=== PATIENT | female | born 1985 | race American Indian/Alaskan Native ===

== ENCOUNTER 2016-11-29 22:31 | Outpatient (CLI) | payer MEDICAID ==
[2016-11-29 22:53] VITALS: BP 130/79
--- NOTE | 2016-11-30 10:33 | Ultrasound Report ---
OB LIMITED Technique: Transabdominal ultrasound with Doppler interrogation. Gestation: Single Position: Cephalic Amniotic Fluid: Normal RENEA = 11.5 cm Placenta: Fundal Placental Grade: 2 Heart Rate: 152 BPM
== END 2016-11-29 23:52 | disposition home or self-care (01) ==
LOC: TRG 22:31
PROVIDERS: ATTEND Obstetrics & Gynecology Gynecology
DX: O47.1 False labor at or after 37 completed weeks of gestation (principal); Z3A.37 37 weeks gestation of pregnancy
CPT/HCPCS: 76815

== ENCOUNTER 2016-12-09 08:50 | Inpatient (IN) | payer MEDICAID ==
[2016-12-09] MEDS: SUBLIMAZE IV PRN ×2 (08:50→11:20)
--- NOTE | 2016-12-09 09:32 | History and Physical Report ---
History of Present Illness Date of examination: 12/09/16 Date of admission: 12/09/16 08:52 Chief complaint: SROM History of present illness: 31-year-old 001 at 38+6 weeks presents in active labor, she is a [facility] patient. Patient complains of spontaneous rupture of membranes early this morning followed by contractions, care at [facility] unremarkable per patient. She is GBS positive and allergic to amoxicillin Past History Past Medical History: no pertinent history Past Surgical History: no surgical history [employer] History: herpes. denies: chlamydia, gonorrhea, hepatitis B, hepatitis C, HIV, syphilis Social history: single, smoking - Obstetrical History Expected Date of Delivery: 12/17/16 Actual Gestation: 38 Week(s) 6 Day(s) : 2 Para: 1 Medications and Allergies Allergies Allergy/AdvReac Type Severity Reaction Status Date / Time amoxicillin [Amoxicillin] Allergy Rash Verified 08/18/13 18:53 Home Medications Medication Instructions Recorded Confirmed Last Taken Type Promethazine [Phenergan] 25 mg PO Q6H PRN 08/18/13 08/18/13 Unknown History Review of Systems Constitutional: no fever, no chills, no sweats Cardiovascular: no syncope, no lightheadedness, no shortness of breath, no dyspnea on exertion, no paroxysmal nocturnal dyspnea, no high blood pressure Respiratory: no cough, no shortness of breath, no dyspnea on exertion Gastrointestinal: abdominal pain, no nausea, no vomiting Genitourinary: leakage of fluid, no vaginal bleeding, no vaginal discharge, no genital sores - Vital Signs Vital signs: Vital Signs Pulse BP Pulse Ox 102 H 119/76 98 12/09/16 09:21 12/09/16 09:21 12/09/16 09:21 Temp Pulse Resp BP Pulse Ox 97 H 119/76 99 12/09/16 09:27 12/09/16 09:21 12/09/16 09:27 - Physical Exam Abdomen: Positive: normal appearance, soft. Negative: distention, tenderness, guarding, rigidity Genitourinary (Female): Positive: normal external genitalia, other (Patient with low pain threshold to vaginal exams) Vulva: both: normal Uterus: Positive: enlarged (EFW ~ 3400) Adnexa: both: normal Extremities: Positive: normal - Obstetrical FHR: category 2 (minimal variability, no accels) Cervical Dilatation: 2.5 Cervical Effacement Percentage: 40 station: -3 Results All other labs normal. Assessment and Plan A: 31 y/o at 38+6 wks s/p SROM now in active labour -Cat 2 tracing P: -Admit -GBS prophylaxis with Vanc -Routine labs -Epidural prn -Start Oxygen and IV bolus -UDS -Anticipate - Patient Problems (1) 38 weeks gestation of Current Visit: Yes Status: Acute (2) Spontaneous rupture of amniotic membranes Current Visit: Yes Status: Acute (3) Active labor at term Current Visit: Yes Status: Acute
[2016-12-09 10:01] LABS: Hematocrit 36.1 % (30.3-42.9); Hemoglobin 11.9 gm/dl (10.1-14.3); Mean Corpuscular HGB Conc 33 % (30-34); Mean Corpuscular Hemoglobin 33 pg (28-32); Mean Corpuscular Volume 99 fl (79-97); Platelet Count 394 K/mm3 (140-440); Red Blood Count 3.66 M/mm3 (3.65-5.03); White Blood Count 13.1 K/mm3 (4.5-11.0)
[2016-12-09] MEDS ORDERED: BRETHINE SUB-Q PRN (11:00)
[2016-12-09] MEDS ORDERED: ePHEDrine SULFATE IV PRN (11:00)
[2016-12-09] MEDS ORDERED: LACTATED RINGERS 1,000 ML IV SCH (11:00)
[2016-12-09] MEDS ORDERED: XYLOCAINE 2% INFILTRATI ONE (11:00)
[2016-12-09] MEDS ORDERED: PITOCin/NS 20 UNIT/1000ML DRIP 20 UNITS/1,000 ML BAG IV SCH (11:00)
[2016-12-09] MEDS ORDERED: MINERAL OIL PO PRN (11:00)
[2016-12-09] MEDS ORDERED: PITOCin/NS 30 UNIT/500ML 30 UNITS/500 ML BAG IV SCH (11:00)
[2016-12-09] MEDS ORDERED: fentaNYL-BUPIV 2 MCG/ML-0.125% 200 MCG/100 ML BAG EPIDURAL ONE (11:05)
[2016-12-09] MEDS ORDERED: BRETHINE IVP PRN (11:30)
[2016-12-09] MEDS ORDERED: VANCOMYCIN/NS 1 GM/250 ML 1 GM/250 ML BAG IV SCH (11:30)
--- NOTE | 2016-12-09 11:51 | Anesthesia Consultation ---
Anesthesia Consult and Med Hx Date of service: 12/09/16 - Airway Anesthetic Teeth Evaluation: Good ROM Head & Neck: Adequate Mental/Hyoid Distance: Adequate Mallampati Class: Class II Intubation Access Assessment: Probably Good - Pulmonary Exam CTA: Yes - Cardiac Exam Cardiac Exam: RRR - Pre-Operative Health Status ASA Pre-Surgery Classification: ASA2 Proposed Anesthetic Plan: Epidural, Spinal - Pulmonary Hx Asthma: No COPD: No Hx Pneumonia: No - Cardiovascular System Hx Hypertension: No - Central Nervous System Hx Seizures: No Hx Psychiatric Problems: No - Endocrine Hx Renal Disease: No Hx End Stage Renal Disease: No Hx Hypothyroidism: No Hx Hyperthyroidism: No - Hematic Hx Anemia: No Hx Sickle Cell Disease: No - Other Systems Hx Alcohol Use: No Hx Obesity: Yes - Additional Comments Anesthesia Medical History Comments: +
[2016-12-09] MEDS ORDERED: fentaNYL-BUPIV 2 MCG/ML-0.125% 200 MCG/100 ML BAG EPIDURAL SCH (12:00)
[2016-12-09 12:16] LABS: Urine Drugs of Abuse Note Disclamer
[2016-12-09] MEDS ORDERED: NARCAN 2 MG/2 ML IV PRN (12:20)
--- NOTE | 2016-12-09 16:26 | Progress Note ---
Assessment and Plan A: 31 y/o at 38+6 wks s/p SROM now in active labour -Cat 1 tracing P: -Continue present care -Anticipate - Patient Problems (1) 38 weeks gestation of Current Visit: Yes Status: Acute (2) Spontaneous rupture of amniotic membranes Current Visit: Yes Status: Acute (3) Active labor at term Current Visit: Yes Status: Acute Subjective - Subjective Date of service: 12/09/16 Interval history: Patient seen and examined. now 8-9 cm and 0 station. no significant caput noted Patient reports: new complaints Objective - Vital Signs Vital Signs: Vital Signs - 12hr 12/09/16 12/09/16 12/09/16 09:21 09:27 10:48 Temperature Pulse Rate 102 H 97 H 84 Respiratory Rate Blood Pressure 119/76 121/72 O2 Sat by Pulse 98 99 Oximetry 12/09/16 12/09/16 12/09/16 11:00 11:17 11:20 Temperature 97.8 F Pulse Rate 103 H Respiratory 18 18 Rate Blood Pressure O2 Sat by Pulse 98 Oximetry 12/09/16 12/09/16 12/09/16 11:22 11:25 11:26 Temperature Pulse Rate 97 H 104 H 91 H Respiratory Rate Blood Pressure O2 Sat by Pulse 100 86 100 Oximetry 12/09/16 12/09/16 12/09/16 11:30 11:32 11:36 Temperature Pulse Rate 85 52 L 92 H Respiratory Rate Blood Pressure 140/81 O2 Sat by Pulse 87 96 Oximetry 12/09/16 12/09/16 12/09/16 11:41 11:43 11:47 Temperature Pulse Rate 97 H 91 H 92 H Respiratory Rate Blood Pressure 133/78 122/71 O2 Sat by Pulse 100 99 Oximetry 12/09/16 12/09/16 12/09/16 11:49 11:51 11:54 Temperature Pulse Rate 105 H 90 87 Respiratory Rate Blood Pressure 118/65 117/77 O2 Sat by Pulse 99 Oximetry 12/09/16 12/09/16 12/09/16 12:00 12:01 12:02 Temperature Pulse Rate 62 86 88 Respiratory Rate Blood Pressure 150/68 127/72 O2 Sat by Pulse 86 100 Oximetry 12/09/16 12/09/16 12/09/16 12:06 12:12 12:16 Temperature Pulse Rate 90 85 100 H Respiratory Rate Blood Pressure O2 Sat by Pulse 100 100 100 Oximetry 12/09/16 12/09/16 12/09/16 12:21 12:26 12:31 Temperature Pulse Rate 94 H 100 H 91 H Respiratory Rate Blood Pressure O2 Sat by Pulse 99 99 100 Oximetry 12/09/16 12/09/16 12/09/16 12:36 12:41 12:46 Temperature Pulse Rate 91 H 99 H 97 H Respiratory Rate Blood Pressure O2 Sat by Pulse 100 100 99 Oximetry 12/09/16 12/09/16 12/09/16 12:51 12:56 13:01 Temperature Pulse Rate 96 H 94 H 94 H Respiratory Rate Blood Pressure O2 Sat by Pulse 100 100 99 Oximetry 12/09/16 12/09/16 12/09/16 13:06 13:11 13:13 Temperature Pulse Rate 98 H 103 H 94 H Respiratory Rate Blood Pressure O2 Sat by Pulse 100 99 79 L Oximetry 12/09/16 12/09/16 12/09/16 13:17 13:21 13:26 Temperature Pulse Rate 97 H 95 H 101 H Respiratory Rate Blood Pressure O2 Sat by Pulse 99 99 98 Oximetry 12/09/16 12/09/16 12/09/16 13:31 13:36 13:41 Temperature Pulse Rate 95 H 106 H 113 H Respiratory Rate Blood Pressure O2 Sat by Pulse 100 99 100 Oximetry 12/09/16 12/09/16 12/09/16 13:46 13:51 13:56 Temperature Pulse Rate 99 H 102 H 104 H Respiratory Rate Blood Pressure O2 Sat by Pulse 100 99 98 Oximetry 12/09/16 12/09/16 12/09/16 14:01 14:06 14:10 Temperature Pulse Rate 91 H 99 H 35 L Respiratory Rate Blood Pressure O2 Sat by Pulse 99 100 62 L Oximetry 12/09/16 12/09/16 12/09/16 14:11 14:16 14:22 Temperature Pulse Rate 103 H 110 H 110 H Respiratory Rate Blood Pressure O2 Sat by Pulse 100 97 99 Oximetry 12/09/16 12/09/16 12/09/16 14:26 14:27 14:31 Temperature Pulse Rate 108 H 108 H 113 H Respiratory Rate Blood Pressure O2 Sat by Pulse 99 83 L 100 Oximetry 12/09/16 12/09/16 12/09/16 14:33 16:00 16:01 Temperature 98.0 F Pulse Rate 105 H 97 H Respiratory 16 Rate Blood Pressure 134/89 137/83 O2 Sat by Pulse Oximetry - Exam FHR: category 1 Cervical Dilatation: 8.5 station: 0 - Labs Labs: Abnormal Labs 12/09/16 09:30 WBC 13.1 H MCV 99 H MCH 33 H Laboratory Results - last 24 hr 12/09/16 12/09/16 12/09/16 09:30 09:30 11:50 WBC 13.1 H RBC 3.66 Hgb 11.9 Hct 36.1 MCV 99 H MCH 33 H MCHC 33 RDW 14.0 Plt Count 394 Urine Opiates Screen Presumptive negative Urine Methadone Screen Presumptive negative Ur Barbiturates Screen Presumptive negative Ur Phencyclidine Scrn Presumptive negative Ur Amphetamines Screen Presumptive negative U Benzodiazepines Scrn Presumptive negative Urine Cocaine Screen Presumptive negative U Marijuana (THC) Screen Presumptive negative Drugs of Abuse Note Disclamer Blood Type B POSITIVE Antibody Screen Negative
--- NOTE | 2016-12-09 17:17 | Procedure Note ---
OB Delivery Note - Delivery Date of Delivery: 12/09/16 Surgeon: JOVI IQBAL Estimated blood loss: 100cc - Vaginal Delivery presentation: vertex Delivery position: OA Intrapartum events: extend. bradycardia, other(please specify) (Poor maternal pushing effort) Delivery induction: none Delivery augmentation: pitocin Delivery monitor: external FHT, external uterine Route of delivery: vacuum extraction (3 pulls with single pop off) Indicators for instrumentation: nonreassuring FHR tracing (associated with poor maternal pushing effort) Delivery placenta: spontaneous Delivery cord: 3 umbilical vessels Episiotomy: none Delivery laceration: none Anesthesia: epidural - A at 1 minute: 8 at 5 minutes: 9 Gender: Female (Del @ 17:07, weight is 7#13 or 3541 g)
[2016-12-09] MEDS ORDERED: PHENERGAN PR PRN (17:18)
[2016-12-09] MEDS ORDERED: TUCKS PAD TP PRN (17:18)
[2016-12-09] MEDS ORDERED: DERMOPLAST TP PRN (17:18)
[2016-12-09] MEDS ORDERED: ZOFRAN IV PRN (17:18)
[2016-12-09] MEDS ORDERED: TYLENOL PO PRN (17:18)
[2016-12-09] MEDS ORDERED: DULCOLAX PR PRN (17:18)
[2016-12-09] MEDS ORDERED: BENADRYL PO PRN (17:18)
[2016-12-09] MEDS ORDERED: LANSINOH TP PRN (17:18)
[2016-12-09] MEDS ORDERED: PHENERGAN PO PRN (17:18)
[2016-12-09] MEDS ORDERED: MILK OF MAGNESIA PO PRN (17:18)
[2016-12-09] MEDS ORDERED: ANUCORT-HC PR PRN (17:18)
[2016-12-09] MEDS ORDERED: SODIUM CHLORIDE FLUSH SYRINGE 10 ML IV NR (18:00)
[2016-12-09] MEDS: MOTRIN PO SCH (19:50)
[2016-12-09] MEDS: SENOKOT S PO SCH (19:51)
[2016-12-09] MEDS: COLACE PO SCH (23:51)
[2016-12-10] MEDS: NORCO 5/325 PO PRN ×2 (04:23→16:29)
[2016-12-10] MEDS: MOTRIN PO SCH ×4 (05:50→23:19)
[2016-12-10 05:55] LABS: Hemoglobin 9.9 gm/dl (10.1-14.3)
[2016-12-10] MEDS: SENOKOT S PO SCH (06:44)
--- NOTE | 2016-12-10 09:25 | Progress Note ---
Assessment and Plan PPD# 1 s/p -Doing well P: -Continue routine care -Anticipate discharge in 24-48 hrs - Patient Problems (1) (normal spontaneous vaginal delivery) Current Visit: Yes Status: Acute (2) 38 weeks gestation of Current Visit: Yes Status: Acute (3) Spontaneous rupture of amniotic membranes Current Visit: Yes Status: Acute (4) Active labor at term Current Visit: Yes Status: Acute Subjective - Subjective Date of service: 12/10/16 Principal diagnosis: PPD# 1 Interval history: Patient seen and examined. Walking around the floor in no apparent distress, adequate bowel bladder function and eager to be discharged today Patient reports: appetite normal, voiding normally, pain well controlled, ambulating normally, no dizzy ambulation, no nauseated : doing well Objective - Vital Signs Latest vital signs: Vital Signs Temp Pulse Pulse Resp BP BP Pulse Ox 12/10/16 07:40 98.3 F 72 20 130/72 12/10/16 04:10 98.8 F 101 H 20 139/78 12/10/16 00:10 98.5 F 97 H 20 139/69 12/09/16 18:25 98.4 F 93 H 20 138/82 12/09/16 18:06 103 H 137/87 12/09/16 17:51 97 H 133/84 12/09/16 17:36 104 H 136/86 12/09/16 17:21 106 H 140/91 12/09/16 17:10 104 H 152/111 12/09/16 16:30 105 H 141/92 12/09/16 16:01 98.0 F 16 12/09/16 16:00 97 H 137/83 12/09/16 14:33 105 H 134/89 12/09/16 14:31 113 H 100 12/09/16 14:27 108 H 83 L 12/09/16 14:26 108 H 99 12/09/16 14:22 110 H 99 12/09/16 14:16 110 H 97 12/09/16 14:11 103 H 100 12/09/16 14:10 35 L 62 L 12/09/16 14:06 99 H 100 12/09/16 14:01 91 H 99 12/09/16 13:56 104 H 98 12/09/16 13:51 102 H 99 12/09/16 13:46 99 H 100 12/09/16 13:41 113 H 100 12/09/16 13:36 106 H 99 12/09/16 13:31 95 H 100 12/09/16 13:26 101 H 98 12/09/16 13:21 95 H 99 12/09/16 13:17 97 H 99 12/09/16 13:13 94 H 79 L 12/09/16 13:11 103 H 99 12/09/16 13:06 98 H 100 12/09/16 13:01 94 H 99 12/09/16 12:56 94 H 100 12/09/16 12:51 96 H 100 12/09/16 12:46 97 H 99 12/09/16 12:41 99 H 100 12/09/16 12:36 91 H 100 12/09/16 12:31 91 H 100 12/09/16 12:26 100 H 99 12/09/16 12:21 94 H 99 12/09/16 12:16 100 H 100 12/09/16 12:12 85 100 12/09/16 12:06 90 100 12/09/16 12:02 88 127/72 100 12/09/16 12:01 86 150/68 12/09/16 12:00 62 86 12/09/16 11:54 87 117/77 12/09/16 11:51 90 99 12/09/16 11:49 105 H 118/65 12/09/16 11:47 92 H 122/71 99 12/09/16 11:43 91 H 133/78 12/09/16 11:41 97 H 100 12/09/16 11:36 92 H 96 12/09/16 11:32 52 L 87 12/09/16 11:30 85 140/81 12/09/16 11:26 91 H 100 12/09/16 11:25 104 H 86 12/09/16 11:22 97 H 100 12/09/16 11:20 18 12/09/16 11:17 103 H 98 12/09/16 11:00 97.8 F 18 12/09/16 10:48 84 121/72 12/09/16 09:27 97 H 99 Intake and Output 12/09/16 12/10/16 12/10/16 22:59 06:59 14:59 Intake Total 480 120 Balance 480 120 Intake: Oral 120 Intake, Free Water 360 120 Other: Total, Intake Amount 120 # Voids Void 300 1 Estimated Blood Loss 100 - Exam Abdomen: Present: normal appearance, soft. Absent: distention, tenderness, guarding, rigidity Uterus: Present: fundal height below umbilicus. Absent: tenderness Extremities: Present: normal - Labs Labs: Abnormal lab results 12/09/16 12/10/16 Range/Units 09:30 05:30 WBC 13.1 H (4.5-11.0) K/mm3 Hgb 9.9 L (10.1-14.3) gm/dl MCV 99 H (79-97) fl MCH 33 H (28-32) pg
--- NOTE | 2016-12-10 09:27 | Discharge Summary ---
Providers - Providers Date of Admission: 12/09/16 08:52 Date of discharge: 12/11/16 Attending physician: JOVI IQBAL Primary care physician: JOVI IQBAL Hospitalization Reason for admission: active labor, rupture of membranes Delivery: vacuum extraction Episiotomy: none Laceration: none Other procedures: none complications: none Discharge diagnosis: IUP at term delivered baby: female Hospital course: Uncomplicated PP course Condition at discharge: Good Disposition: DISCHARGED TO HOME OR SELFCARE - Discharge Diagnoses (1) (normal spontaneous vaginal delivery) Status: Acute (2) 38 weeks gestation of Status: Acute (3) Spontaneous rupture of amniotic membranes Status: Acute (4) Active labor at term Status: Acute Plan - Discharge Medications Prescriptions: HYDROcodone/APAP 5-325 [[place] 5/325] 1 each PO Q6HR PRN #30 tablet PRN Reason: Pain HYDROcodone/APAP 5-325 [[place] 5/325] 1 each PO Q6HR PRN #10 tablet PRN Reason: Pain Ibuprofen [Motrin 600 MG tab] 600 mg PO Q8H PRN #30 tablet PRN Reason: Pain Multivitamin with Iron [Multivitamins with Iron] 1 each PO DAILY #30 tablet - Provider Discharge Summary Activity: no sex for 6 weeks, no heavy lifting 4 weeks, no strenuous exercise Diet: routine Additional instructions: [] Smoking cessation referral if applicable(refer to patient education folder for contact #) [] Refer to [facility]'s [facility] Booklet Call your doctor immediately for: * Fever > 100.5 * Heavy vaginal bleeding ( >1 pad per hour) * Severe persistent headache * Shortness of breath * Reddened, hot, painful area to leg or breast * Drainage or odor from incision. * Keep incision clean and dry at all times and follow doctor's instructions regarding bathing/showering - Follow up plan Follow up: JOVI IQBAL MD [Primary Care Provider] - 6 Weeks
--- NOTE | 2016-12-10 09:34 | Event Note ---
Date: 12/10/16 BPP is 8/8, her HELLP labs are within normal. Last blood pressure is in the 120s over 70s and she is symptomatic for pre-E. On cervical exam, she is 1 cm. Plan at this point is to discharge home, she will be provided instructions on 24 -hour urine collection to return to the clinic
--- NOTE | 2016-12-10 09:35 | Discharge Summary ---
Providers - Providers Date of Admission: 12/09/16 08:52 Date of discharge: 12/10/16 Attending physician: JOVI IQBAL Primary care physician: JOVI IQBAL Hospitalization Reason for admission: observation (IUP at 37+5 admitted with poor testing) Discharge diagnosis: other Pertinent studies: Biophysical profile 2 Hospital course: 31-year-old G2 NP4 admitted with complaint Condition at discharge: Good - Discharge Diagnoses (1) (normal spontaneous vaginal delivery) Status: Acute (2) 38 weeks gestation of Status: Acute (3) Spontaneous rupture of amniotic membranes Status: Acute (4) Active labor at term Status: Acute Plan - Discharge Medications Prescriptions: HYDROcodone/APAP 5-325 [[place] 5/325] 1 each PO Q6HR PRN #30 tablet PRN Reason: Pain HYDROcodone/APAP 5-325 [[place] 5/325] 1 each PO Q6HR PRN #10 tablet PRN Reason: Pain Ibuprofen [Motrin 600 MG tab] 600 mg PO Q8H PRN #30 tablet PRN Reason: Pain Multivitamin with Iron [Multivitamins with Iron] 1 each PO DAILY #30 tablet - Provider Discharge Summary Additional instructions: [] Smoking cessation referral if applicable(refer to patient education folder for contact #) [] Refer to [facility]'s [facility] Booklet Call your doctor immediately for: * Fever > 100.5 * Heavy vaginal bleeding ( >1 pad per hour) * Severe persistent headache * Shortness of breath * Reddened, hot, painful area to leg or breast * Drainage or odor from incision. * Keep incision clean and dry at all times and follow doctor's instructions regarding bathing/showering - Follow up plan Follow up: JOVI IQBAL MD [Primary Care Provider] - 6 Weeks
[2016-12-10] MEDS ORDERED: PRENATAL VITAMIN PO SCH (10:00)
--- NOTE | 2016-12-10 10:18 | Progress Note ---
Subjective Date of service: 12/10/16 Principal diagnosis: PPD# 1 Interval history: 1st day after normal vaginal delivery Patient is out of the bed, relatively comfortable. Pain is well controlled with pain meds. Ambulated well. No residual neurological deficit. No anesthesia complications Objective - Constitutional Vitals: Vital Signs - 12hr 12/10/16 12/10/16 12/10/16 00:10 04:10 07:40 Temperature 98.5 F 98.8 F 98.3 F Pulse Rate [ 97 H 101 H 72 From Monitor] Respiratory 20 20 20 Rate Blood Pressure 139/69 139/78 130/72 [Right Arm] - Labs CBC & Chem 7: 12/10/16 05:30 Labs: Abnormal lab results 12/10/16 Range/Units 05:30 Hgb 9.9 L (10.1-14.3) gm/dl
[2016-12-10] MEDS ORDERED: FLUARIX QUAD 2016-2017(36 MOS+) IM ONE (12:00)
[2016-12-10] MEDS: FEOSOL PO SCH ×2 (12:55→21:44)
[2016-12-10] MEDS: COLACE PO SCH ×2 (16:19→21:44)
[2016-12-11] MEDS: MOTRIN PO SCH (05:34)
[2016-12-11] MEDS ORDERED: FLUARIX QUAD 2016-2017(36 MOS+) IM ONE (14:24)
[2016-12-11 17:57] VITALS: BP 128/76
== END 2016-12-11 17:50 | disposition home or self-care (01) | DRG 775 ==
LOC: TRG 08:50 → LD 08:52 → OB 18:24
PROVIDERS: ADMIT Obstetrics & Gynecology Gynecology; ATTEND Obstetrics & Gynecology Gynecology
PROC: 10D07Z6 Extraction of Products of Conception, Vacuum, Via Natural or Artificial Opening (ICD-10-PCS; principal; 2016-12-09)
PROC: 3E0S3CZ (ICD-10-PCS; 2016-12-09)
PROC: 00HU33Z Insertion of Infusion Device into Spinal Canal, Percutaneous Approach (ICD-10-PCS; 2016-12-09)
DX: O42.92 Full-term premature rupture of membranes, unspecified as to length of time between rupture and onset of labor (principal); O99.820 Streptococcus B carrier state complicating pregnancy; O76 Abnormality in fetal heart rate and rhythm complicating labor and delivery; O99.214 Obesity complicating childbirth; E66.9 Obesity, unspecified; Z37.0 Single live birth; Z68.34 Body mass index [BMI] 34.0-34.9, adult; Z88.1 Allergy status to other antibiotic agents; Z3A.38 38 weeks gestation of pregnancy
CPT/HCPCS: 36415; 80307; 85014; 85018; 85027; 86850; 86900; 86901; 90686; 99406; J2590; J3010; J3370; J7120